=== PATIENT | female | born 1995 | race Two or more races ===

== ENCOUNTER 2018-04-17 11:04 | Emergency (ER) | payer SELFPAY ==
[~2018-04-17] VITALS: Ht 157.5 cm; Wt 96.3 kg
[2018-04-17 11:26] VITALS: BP 116/77
[2018-04-17] MEDS ORDERED: IBUPROFEN 200 MG TABLET PO ONE (12:00)
[2018-04-17] MEDS ORDERED: IBUPROFEN 200 MG TABLET ONE (12:37)
== END 2018-04-17 13:26 | disposition home or self-care (01) ==
LOC: ED 12:58
DX: H66.002 Acute suppurative otitis media without spontaneous rupture of ear drum, left ear (principal); J45.909 Unspecified asthma, uncomplicated; R51 Headache; Z87.891 Personal history of nicotine dependence
CPT/HCPCS: 71046; 93005; 99283